=== PATIENT | male | born 1990 | race Caucasian/White ===

== ENCOUNTER 2021-01-15 17:57 | Emergency (ER) | payer MEDICAID ==
[~2021-01-15] VITALS: Ht 177.8 cm; Wt 63.2 kg
[2021-01-15 18:01] VITALS: Ht 177.8 cm; Wt 63.2 kg
[2021-01-15] MEDS ORDERED: HYDROCODON-ACE1 EAC7 PO (20:03)
[2021-01-16 01:53] VITALS: BP 112/77
== END 2021-01-16 01:53 | disposition home or self-care (01) ==
LOC: D.ER 17:57
DX: S61.211A Laceration without foreign body of left index finger without damage to nail, initial encounter (principal); X58.XXXA Exposure to other specified factors, initial encounter